=== PATIENT | male | born 1950 | race Caucasian/White ===

== ENCOUNTER → 2018-06-03 | Outpatient (CLI) | payer BC ==
[~2018-06-03] MED LIST: AMLO5TAB3 PO; CEPH500C2 PO; HYZ/10015 PO; TERA5CAP PO
--- NOTE | 2018-06-03 17:26 | DIAGNOSTIC IMAGING REPORT ---
L VENOUS DOPP LOWER EXT UNILAT HISTORY: 67 years-old Male EFFUSION, LEFT KNEE, LEG SWELLING acute left leg pain and swelling COMPARISON: None available TECHNIQUE: Multiple real-time sonographic images of the left lower extremity deep venous structures were obtained assessing grayscale appearance, color and spectral flow FINDINGS: Normal flow, compressibility, phasicity and augmentation of the left lower extremity deep venous structures. Mildly complex hypoechoic structure about the left popliteal fossa, 2.6 x 1.4 x 1.3 cm suggests Wasserman's cyst. IMPRESSION: No sonographic evidence of deep venous thrombosis. The above report was generated using voice recognition software. It may contain grammatical, syntax or spelling errors. Electronically signed by: Gama Pennington M.D. 06/03/2018 5:25 PM Dictated Date/Time: 06/03/2018 5:24 PM
== END | disposition home or self-care (01) ==
LOC: C.ULTR 16:45
PROVIDERS: ATTEND Hospitalist
DX: M25.469 Effusion, unspecified knee (principal); M79.89 Other specified soft tissue disorders